=== PATIENT | female | born 1975 | race Caucasian/White ===

== ENCOUNTER 2024-06-06 16:28 | Outpatient (CLI) | payer SELFPAY ==
[2024-06-06 18:14] LABS: Free T4 Free Thyroxine* 0.85 ng/dL (0.70-1.85)
[2024-06-08 17:21] LABS: Thyroid Peroxidase (TPO) Ab 114.2 IU/mL (0.0-9.0)
[2024-06-09 21:50] LABS: Free T3 2.2 pg/mL (2.5-4.3)
== END 2024-06-06 16:29 | disposition home or self-care (01) ==
LOC: LAB 16:29
PROVIDERS: PCP Family Medicine; Visit Provider Family Medicine
DX: E03.9 Hypothyroidism, unspecified (principal); E06.3 Autoimmune thyroiditis; K90.0 Celiac disease
CPT/HCPCS: 36415; 84439; 84443; 84481; 86376